=== PATIENT | male | born 1980 | race Caucasian/White ===

== ENCOUNTER 2019-10-12 22:01 | Emergency (ER) | payer SELFPAY ==
--- NOTE | 2019-10-12 23:42 | ED.PDOC ---
History of Present Illness - General Chief Complaint: Problem Stated Complaint: pain with urination Time Seen by Provider: 10/12/19 22:50 Source: patient, Vital Signs reviewed, family - Exam Limitations: no limitations - History of Present Illness Initial Comments: Patient is a 39-year-old white male who presents with complaints of burning with urination for the last few days. This pain is getting worse. Occurs with initiation of his stream and at the end of his stream. Pain is mild. It is getting worse. Additionally, he has some mild pain over the very top edge of his bladder suprapubically. Patient denies any fever, chills, nausea, vomiting, diarrhea. Patient denies any penile discharge or purulent material. I have discussed this with the and she is not having any problems either. Timing/Duration: other - 2 to 3 days Quality: mild, burning Onset Location: urethral Radiation: suprapubic Activites at Onset: none Prior abdominal problems: none Sexual intercourse history: less than 2 months ago, single partner Improving Factors: nothing Worsening Factors: nothing Associated Symptoms: denies symptoms Allergies/Adverse Reactions: Allergies NO KNOWN ALLERGY Allergy (Verified 10/12/19 22:50) Home Medications: Ambulatory Orders Cefdinir [Omnicef] 300 mg PO BID #20 cap 10/12/19 Review of Systems - Review of Systems Constitutional: States: no symptoms reported, see HPI. Denies: chills, fever, malaise, weakness EENTM: States: no symptoms reported Respiratory: States: no symptoms reported. Denies: cough, short of breath Cardiology: States: no symptoms reported. Denies: chest pain, palpitations, syncope Gastrointestinal/Abdominal: States: see HPI, abdominal pain - Suprapubic suprapubic Genitourinary: States: see HPI, dysuria, frequency, pain. Denies: discharge, hematuria Musculoskeletal: States: no symptoms reported. Denies: back pain, neck pain Skin: States: no symptoms reported. Denies: change in color, rash Neurological: States: no symptoms reported. Denies: tingling, tremors, weakness Endocrine: States: no symptoms reported Hematologic/Lymphatic: States: no symptoms reported Past Medical History (General) - Patient Medical History Hx Seizures: No Hx Stroke: No Hx Dementia: No Hx Asthma: No Hx of COPD: No Hx Cardiac Disorders: No Hx Congestive Heart Failure: No Hx Pacemaker: No Hx Hypertension: No Hx Thyroid Disease: No Hx Diabetes: No Hx Gastroesophageal Reflux: No Hx Renal Disease: No Hx Cancer: No Hx of HIV: No Hx Hepatitis C: No Hx MRSA: No Surgical History: no surgical history - Vaccination History Hx Tetanus, Diphtheria Vaccination: No Hx Influenza Vaccination: No Hx Pneumococcal Vaccination: No Immunizations Up to Date: No - Social History Hx Tobacco Use: No Hx Chewing Tobacco Use: No Hx Alcohol Use: Yes Hx Substance Use: No Hx Substance Use Treatment: No Hx Depression: No Feels Threatened In Home Enviroment: No Feels Threatened In a Relationship: No Hx Physical Abuse: No Hx Emotional Abuse: No Hx Suspected Abuse: No - Activities of Daily Living Hospice Agency (if applicable):: None - Female History Patient is a Female of Child Bearing Age (10 -59 yrs old): No Family Medical History - Family History Mother Family History: No Known Physical Exam - Physical Exam General Appearance: Alert, Comfortable, Well Developed, Well Groomed, Well Hydrated, Well Nourished Eyes, Ears, Nose, Throat Exam: PERRL/EOMI, normal ENT inspection, pharynx normal Neck: non-tender, full range of motion, supple, normal inspection Cardiovascular/Respiratory: regular rate, rhythm, no M/R/G, normal peripheral pulses, no JVD, normal breath sounds, no respiratory distress Gastrointestinal/Abdominal: normal bowel sounds, non tender, soft, no organomegaly Male Genital Exam: other - Deferred at patient request Back Exam: normal inspection, no CVA tenderness, no vertebral tenderness Extremity: normal range of motion, non-tender, normal inspection 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 10/12/19 23:44 Plan on starting patient on antibiotics. I discussed this plan of care with the patient and his and they voiced understanding and agreement. Gonorrhea and Chlamydia TMA is pending. Dean See M.D. #[id number] - Results/Orders Results/Orders: 10/12/19 22:54 GC CHLAMYDIA RNA,TMA Stat 06/16/20 22:59 Urine Culture Stat Laboratory Results - last 24 hr 10/12/19 22:59 Urine Color Yellow Urine Appearance Cloudy Urine pH 7.0 Ur Specific [place] 1.020 Urine Protein Negative Urine Glucose (UA) Negative Urine Ketones Negative Urine Blood Trace-intact H Urine Nitrite Negative Urine Bilirubin Negative Urine Urobilinogen 0.2 Ur Leukocyte Esterase Large H Urine RBC 0-1 Urine WBC 30-40 H Ur Epithelial Cells 0-1 Urine Bacteria 1+ Vital Signs 10/12/19 22:45 Temperature 97.3 F L Pulse Rate [ 88 monitor] Respiratory 16 Rate Blood Pressure 148/85 [Left Arm] O2 Sat by Pulse 95 Oximetry Departure - Departure Clinical Impression: UTI (urinary tract infection) Qualifiers: Urinary tract infection type: site unspecified Hematuria presence: without hematuria Qualified Code(s): N39.0 - Urinary tract infection, site not specified Time of Disposition: 23:45 Disposition: Discharge to Home or Self Care Condition: Good Departure Forms: ED Discharge - Pt. Copy, Patient Portal Self Enrollment Instructions: DI for Urinary Tract Infection (UTI) Diet: resume usual diet Activity: increase activity as tolerated Prescriptions: Cefdinir [Omnicef] 300 mg PO BID #20 cap Home Medications: Ambulatory Orders Cefdinir [Omnicef] 300 mg PO BID #20 cap 10/12/19
[2019-10-13] MEDS: CEFDINIR 300 MG CAP PO ONE
[2019-10-13 00:09] VITALS: BP 124/74; TEMP 97.6; O2SAT 96
== END 2019-10-13 00:02 | disposition home or self-care (01) ==
LOC: ER 22:01
DX: N39.0 Urinary tract infection, site not specified (principal)